=== PATIENT | male | born 1945 | race Caucasian/White ===

== ENCOUNTER → 2017-02-09 | Day surgery (SDC) | payer MEDICARE ==
[~2017-02-09] VITALS: Ht 172.7 cm; Wt 65.1 kg
[~2017-02-09] MED LIST: ABIL5TAB6 PO; ACETAMINOPHEN 1000 MG/100 ML VIAL IV SCH; CHLORHEXIDINE GLUCONATE 2 % 1 PACK (2 CLOTHS) TOPICAL PRN; DORZ2SOL15 RIGHT EYE; INSULIN HUMAN REGULAR 1,000 UNITS/10 ML VIAL SQ PRN; LACTATED RINGER'S 1000 ML IV PRN; LAMI200T PO; LATA0.002 RIGHT EYE; METOPROLOL TARTRATE 25 MG TAB PO PRN; MULT1TAB84 PO; POVIDONE IODINE 5% (ANTISEPSIS KIT) 4 APPLICATIONS EACH NARE PRN; QUET1TAB9 PO; SODIUM CHLORID 0.9% 500 ML IV PRN; SYNT175T PO; ceFAZolin 2 GM PREMIX 50 ML IV SCH
[2017-02-09 10:41] VITALS: BP 167/88; PULSE 62; RESP 18; TEMP 98; O2SAT 98
== END | disposition home or self-care (01) ==
LOC: HSDC 09:48
PROVIDERS: ATTEND Surgery
DX: K40.90 Unilateral inguinal hernia, without obstruction or gangrene, not specified as recurrent (principal); Z53.9 Procedure and treatment not carried out, unspecified reason
CPT/HCPCS: G0463; J0131; J7120; 99211

== ENCOUNTER → 2017-02-27 | Day surgery (SDC) | payer MEDICARE ==
[~2017-02-27] MED LIST changes: +ACETAMINOPHEN 1000 MG/100 ML VIAL IV ONE; -ACETAMINOPHEN 1000 MG/100 ML VIAL IV SCH; +BUPIVACAINE/EPINEPHRINE 0.25% 50 ML VIAL ONE; -CHLORHEXIDINE GLUCONATE 2 % 1 PACK (2 CLOTHS) TOPICAL PRN; -INSULIN HUMAN REGULAR 1,000 UNITS/10 ML VIAL SQ PRN; +LACTATED RINGER'S 1000 ML INJ 1,000 ML ONE; -LACTATED RINGER'S 1000 ML IV PRN; -LAMI200T PO; +MEPERIDINE HCL 25 MG/ML VIAL ONE; -METOPROLOL TARTRATE 25 MG TAB PO PRN; +MIDAZOLAM HCL 2 MG/2 ML VIAL ONE; +MORPHINE SULFATE 4 MG/ML INJ ONE; +ONDANSETRON HCL 4 MG/2 ML VIAL IV PUSH ONE; -POVIDONE IODINE 5% (ANTISEPSIS KIT) 4 APPLICATIONS EACH NARE PRN; +PROPOFOL 200 MG/20 ML AMP IV ONE; -SODIUM CHLORID 0.9% 500 ML IV PRN; +VANCOMYCIN HCL 1000 MG VIAL ONE; -ceFAZolin 2 GM PREMIX 50 ML IV SCH; +oxyCODONE/ACETAMINOPHEN 5 MG/325 MG TAB ONE
--- NOTE | 2017-02-27 16:47 | TN ---
cc: ANURAG CARABALLO MD DATE OF SURGERY: 02/27/2017 PREOPERATIVE DIAGNOSIS Left inguinal hernia. POSTOPERATIVE DIAGNOSIS: Left inguinal hernia. PROCEDURE: Repair of left inguinal hernia with mesh. SPECIMEN: None. ESTIMATED BLOOD LOSS: 5 cc. ANESTHESIA: General, LMA. COMPLICATIONS: None apparent. OPERATIVE FINDINGS: The patient had a thickened and chronic indirect inguinal hernia. PROCEDURE IN DETAIL: The patient was taken to the operating room, placed in supine position. General anesthesia via LMA was induced. The left lower abdomen and groin was prepped and draped in usual sterile fashion. A surgical time-out was performed to verify correct patient, procedure and site. The patient received preoperative vancomycin due to a history of skin infections. Local anesthetic was injected in the skin and subcutaneous tissue in the left inguinal area and inguinal incision created. Dissection was carried out through subcutaneous tissue using electrocautery as well as through Ritu fascia. The external oblique fascia was encountered and a small incision created along the line of the fibers. The incision was lengthened using the Metzenbaum scissors all the way down to the external inguinal ring. External oblique flaps were then created superiorly and inferiorly. The spermatic cord and hernia were isolated from underlying tissues using the Eudora drain. There did not appear to be a direct inguinal hernia. On evaluation of the spermatic cord the patient was noted to have a thickened chronic hernia sac adherent to the cord structures. This was carefully from the cord structures and the internal oblique muscle. The hernia sac was opened inadvertently. After it was fully from surrounding tissues, the hernia sac was closed with a running 3-0 Vicryl suture and reduced back into the abdominal cavity. Some fatty tissue from the spermatic cord was excised. At this point the entire inguinal floor was ready for mesh placement. I cut to size the piece of Ultra pro Advanced 15 x 15 cm mesh. This was secured at the pubis and along the shelving edge of the external oblique using interrupted 0 Ethibond sutures. It was secured to the conjoined tendon and the internal oblique again with interrupted zero Ethibond. It was tucked laterally under the external oblique fascia. A suture was placed to join the two flaps of mesh laterally and recreate the internal ring. There was wide coverage of the entire inguinal floor. At this point the external oblique fascia was closed with running 3-0 Vicryl suture and the external ring was recreated. Ritu's was closed with a single 4-0 PDS, skin closed with subcuticular 4-0 Monocryl and dermabond. An athletic supporter was applied. The patient tolerated the procedure well was extubated and taken to PACU in stable condition. MD MARKO Faust/PRABHJOT /2:58 PM /4:09 PM
== END | disposition home or self-care (01) ==
LOC: ESDC 09:50
PROVIDERS: ATTEND Surgery
DX: K40.90 Unilateral inguinal hernia, without obstruction or gangrene, not specified as recurrent (principal)
CPT/HCPCS: 00830; 49505; C1781; J0131; J2175; J2250; J2270; J2405; J3010; J3370; J7120